=== PATIENT | female | born 1955 | race Caucasian/White ===

== ENCOUNTER 2022-11-09 11:08 | Emergency (ER) | payer MEDICARE, BC, SELFPAY ==
[2022-11-09 11:12] VITALS: BP 165/110; PULSE 99; RESP 16; TEMP 36.6; O2SAT 98; BMI 28.2
--- NOTE | 2022-11-09 11:45 | ED.GENADUL1 ---
HPI - General Adult General Stated complaint: EYE AND NECK ITCHINESS Time Seen by Provider: 11/09/22 11:11 Source: patient Mode of arrival: walk-in Limitations: no limitations History of Present Illness HPI narrative: The patient presented to us with two main concern the 1st one is that she has been having at least two weeks a rash on her left wrist, it did not respond to [id number]-[id number] medication and it is itchy the patient mentioned that she has been exposed to her neighbor who have yeast infection She also noted over the last two days that she's been having itching around her left eye and she also applied the same gpyw-zwo-[id number] cream to her eye with no improvement No blurry vision or double vision and no eye pain no other complaints Related Data Previous Rx's Medication Instructions Recorded clotrimazole 1 % topical cream 1 applic topical BID 2 weeks #15 11/09/22 grams loratadine 10 mg tablet (Claritin) 10 mg PO DAILY PRN itching #10 tabs 11/09/22 tobramycin 0.3 % eye drops 1 drp ophthalmic (eye) Q4H #5 mL 11/09/22 Allergies Allergy/AdvReac Type Severity Reaction Status Date / Time No Known Drug Allergies Allergy Verified 11/09/22 11:12 Review of Systems ROS Status of ROS 10 or more systems reviewed and unremarkable except as noted in history and below Exam Narrative Exam Narrative: Nurses notes and vital signs reviewed and patient is not hypoxic. General: Well-appearing and in no apparent distress. Skin: Warm, dry, no pallor noted. No rash. Head: Normocephalic, atraumatic. Neck: Supple, non-tender. Eye: Pupils are equal, round and EOMI.Left upper and lower eyelid mild swelling there is no limitation of movement of the eye with pain and the patient had a dry macular rash to the lower eyelid Ears, Nose, Mouth, and Throat: TM are clear, no nasal mucosal hypertrophy. Oral mucosa is moist, no posterior oropharynx erythema, uvula is mid-line Cardiovascular: Regular Rate and Rhythm without murmur, gallop or rub. Respiratory: No accessory muscle use or respiratory distress. Lungs are clear to auscultation, no wheezing, rales or rhonchi Chest Wall: no tenderness Back: No midline thoracic or lumbar vertebral tenderness. No CVA tenderness Musculoskeletal: normal ROM, no calf or popliteal tenderness, no lower extremity edema/swelling,There is a small circular 1 cm in diameter macular dry rash on the left wrist GI: Abdomen is soft, non-distended. Normal bowel sounds. No masses appreciated. No tenderness to palpation. No rebound, guarding, or rigidity noted. Neurological: A&O x4. No cranial nerve dysfunction observed. No truncal ataxia. Moves all extremities. Sensation intact. Psychiatric: Cooperative and interactive. Normal mood and affect. Constitutional Vital Signs, click to edit/add: Last Vital Signs Temp 97.8 F 11/09/22 11:12 Pulse 99 H 11/09/22 11:12 Resp 16 11/09/22 11:12 BP 165/110 H 11/09/22 11:12 Pulse Ox 98 11/09/22 11:12 O2 Del Method Room Air 11/09/22 11:12 Course Vital Signs Vital signs: Vital Signs Temperature 97.8 F 11/09/22 11:12 Pulse Rate 99 H 11/09/22 11:12 Respiratory Rate 16 11/09/22 11:12 Blood Pressure 165/110 H 11/09/22 11:12 Pulse Oximetry 98 11/09/22 11:12 Oxygen Delivery Method Room Air 11/09/22 11:12 Temperature 97.8 F 11/09/22 11:12 Pulse Rate 99 H 11/09/22 11:12 Respiratory Rate 16 11/09/22 11:12 Blood Pressure 165/110 H 11/09/22 11:12 Pulse Oximetry 98 11/09/22 11:12 Oxygen Delivery Method Room Air 11/09/22 11:12 Medical Decision Making [facility] Narrative Medical decision making narrative: The patient presentation is most 2/2 tinea infection she was instructed about applying clotrimazole cream to the area ,Of the left breast as well as the lower eyelids keeping an eye on not reaching the globe itself she also was prescribed tobramycin eyedrop to cover for underlying conjunctivitis The patient to take Claritin daily for itching PRN The patient is to followup with primary care physician in next 2-3 days or to return to the emergency department should any of the signs or symptoms worsen or new symptoms develop. The patient agrees with the following Diagnosis and Treatment plan and the patient will be discharged home. Discharge Plan Discharge Clinical Impression: Tinea, Conjunctivitis Patient Disposition: Home, Self-Care Time of Disposition Decision: 11:37 Condition: Good Mode of Transportation: Private Vehicle Prescriptions / Home Meds: New clotrimazole 1 % cream 1 applic topical BID 14 Days Qty: 15 0RF tobramycin 0.3 % drops 1 drp ophthalmic (eye) Q4H Qty: 5 0RF Rx Instructions: to the left eye for 5 days loratadine [Claritin] 10 mg tablet 10 mg PO DAILY PRN (Reason: itching) Qty: 10 0RF Instructions: Tinea Corporis (ED), Conjunctivitis (ED) Stand Alone Forms: Portal Instructions Referrals: FERNANDO CALDERÓN [Primary Care Provider] - 1 week
[2022-11-09 11:50] VITALS: BP 147/78
[2022-11-09] MEDS: PREDNISONE 20 MG TABLET 40 MG PO (11:52)
--- NOTE | 2022-11-09 12:25 | PC.NURSE ---
Pt has had redness and itching to L eye for 2-3 weeks -- dry spot on L forearm and R knee. no drainage needed
== END 2022-11-09 11:56 | disposition home or self-care (01) ==
PROVIDERS: Emergency Provider Emergency Medicine; PCP Family Medicine
DX: B35.9 Dermatophytosis, unspecified (principal); H10.9 Unspecified conjunctivitis
CPT/HCPCS: 99283

== ENCOUNTER 2024-10-15 15:52 | Emergency (ER) | payer MEDICARE, BC, SELFPAY ==
[2024-10-15] VITALS (9 sets, daily range): BP systolic 147–194; BP diastolic 86–112; PULSE 67–87; TEMP 37; O2SAT 96–99; BMI 31.0
--- OUTSIDE RECORDS SUMMARY | 2024-10-15 16:01 | XMS_ITS | Clinical Summary ---
Author Organization [facility] Address [address] [place] [address] Care Team Providers Care Sat Instructor Name Role Phone Unavailable Primary Care Provider Unavailabl e Social History Tobacco Use Types Packs/Day Years Used Date Smoking Tobacco: Never Assessed Comments Unknown Sex and Gender Information Value Date Recorded Sex Assigned at Not on file Legal Sex Female 6:37 PM EDT Gender Identity Not on file Sexual Orientation Not on file Last Filed Vital Signs Vital Sign Reading Time Taken Comments Blood Pressure - - Pulse - - Temperature - - Respiratory Rate - - Oxygen Saturation - - Inhaled Oxygen Concentration - - Weight 87.1 kg (192 lb) 04/01/2021 12:00 PM EST Height 165.1 cm (5' 5 ) 04/01/2021 12:00 PM EST Body Mass Index 31.95 04/01/2021 12:00 PM EST Plan of Treatment Not on file Insurance MEDICARE
--- OUTSIDE RECORDS SUMMARY | 2024-10-15 16:01 | XMS_ITS | Clinical Summary ---
Author Organization [facility] Address [facility] [place] [id number] [address] [place] [address] Care Team Providers Care Zigzag Topstitcher Name Role Phone Yusuf Callaway MD Primary Care Provider [phone] Allergies Active Allergy Reactions Criticality Noted Date Comments Ciprofloxacin 11/21/2021 Medications fexofenadine-ps eudoephedrine (NIKOLAS-D) 60-120 mg per 12 hr tablet Take 1 tablet by mouth in the morning and 1 tablet before bedtime. Active predniSONE (DELTASONE) 10 mg tabletIndicatio ns:Chronic nasal congestion Daily dose: 5 tabs for 2 days, then 4 tabs for 2 days, then 3 tabs for 2 days, then 2 tabs for 2 days, then 1 tab for 2 days 30 tablet 2 Active Additional Information Patient not taking.Reported on 01/25/2022 mometasone (NASONEX) 50 mcg/actuation nasal sprayIndication s:Chronic nasal congestion Administer 2 sprays into each nostril in the morning. 17 g 12 2 Active Active Problems Problem Noted Date Diagnosed Date Chronic nasal congestion 11/21/2021 Deviated nasal septum 11/21/2021 Social History Tobacco Use Types Packs/Day Years Used Date Smoking Tobacco: Never Assessed Childcare Answer Date Recorded Childcare Unknown 10/09/2018 Employment Answer Date Recorded Employment Unknown 10/09/2018 Purpose - Life Answer Date Recorded Purpose and direction in life Unknown Comments Unknown Sex and Gender Information Value Date Recorded Sex Assigned at Not on file Legal Sex Female 11:50 AM EDT Gender Identity Not on file Sexual Orientation Not on file Last Filed Vital Signs Vital Sign Reading Time Taken Comments Blood Pressure - - Pulse - - Temperature - - Respiratory Rate - - Oxygen Saturation - - Inhaled Oxygen Concentration - - Weight 83.9 kg (185 lb) 01/25/2022 11:31 AM EDT Height 170.2 cm (5' 7 ) 01/25/2022 11:31 AM EDT Body Mass Index 28.98 01/25/2022 11:31 AM EDT Plan of Treatment Health Maintenance Due Date Last Done Comments Depression Screening 1966 Tobacco Screening 1966 DTaP,Tdap and Td Vaccines (1 - Tdap) 1973 Zoster (Shingles) Vaccine (1 of 2) 2004 Fall Risk Screening 10/20/2019 Adult BMI Screening 01/25/2023 01/25/2022 Influenza Vaccine 12/29/2024 Medical Devices Not on file [place] [address] MEDICARE Care Teams Zigzag Topstitcher Relationship Specialty [place] [id number] [address] PCP - General Family Medicine 12/28/21
--- NOTE | 2024-10-15 17:36 | XR_ITS ---
[address] [address] Patient Name: KAREN BARBOSA MRN: [id number] date: 1955 Sex: F Assigned Patient Location: ER Current Patient Location: ER Accession/Order Number: [id number] Exam Date: 10/15/2024 17:56 Report Date: 10/15/2024 17:57 At the request of: MEÑO JOHNSON Procedure: XR chest 2V XR chest 2V 10/15/2024 5:51 PM SIGNS AND SYMPTOMS: ^swelling wt gain PROTOCOL: Frontal and lateral radiographs of the chest COMPARISON: None FINDINGS: The trachea is midline. The heart and mediastinal structures are within normal limits. The lung parenchyma is clear. The bony thorax is intact. XR/XR chest 2V IMPRESSION: No acute cardiopulmonary pathology. Impression dictated by: Herve Young M.D. 10/15/2024 5:57 PM Dictation Location: [place] [address] Electronically authenticated by: [id number] Y Date: 10/15/2024 17:57
--- NOTE | 2024-10-15 17:36 | ECG_ITS ---
[facility] Test Date: 2024-10-15 Pat Name: KAREN BARBOSA Department: Room: - Gender: Female Distribution Clerk: : 1955 Requested By: 0923 Order Number: [id number] Celio MD: YOLANDA MEJIA M.D. Measurements Intervals Sidney Rate: 65 P: 56 ME: 152 QRS: 85 QRSD: 82 T: 69 QT: 418 QTc: 430 Interpretive Statements 1100 Sinus rhythm 9110 normal ECG No previous ECG available for comparison Electronically Signed On 10-15-2024 21:06:37 EDT by YOLANDA MEJIA M.D.
[2024-10-15 18:05] LABS: Basophils Absolute Auto 0.1 10^3/uL (0.0-0.1); Basophils Percent Auto 0.7 % (0.2-2.0); Eosinophils Absolute Auto 0.4 10^3/uL (0.0-0.7); Eosinophils Percent Auto 3.9 % (0.9-7.0); Hematocrit 43.2 % (36.0-48.0); Hemoglobin 13.9 g/dL (12.0-16.0); Immature Granulocytes Abs Auto 0.02 10^3/uL (0.00-0.03); Immature Granulocytes Pct Auto 0.2 % (0.0-0.5); Lymphocytes Percent Auto 29.8 % (20.5-60.0); Mean Corpuscular HGB Conc 32.2 g/dL (29.9-35.2); Mean Corpuscular Volume 93.1 fL (81.0-99.0); Mean Platelet Volume 10.3 fL (9.5-13.5); Monocytes Absolute Auto 0.9 10^3/uL (0.3-0.8); Monocytes Percent Auto 8.5 % (1.7-12.0); Neutrophils Absolute Auto 5.7 10^3/uL (1.4-6.5); Neutrophils Percent Auto 56.9 % (43.0-75.0); Platelet Count 321 10^3/uL (150-450); Red Blood Count 4.64 10^6/uL (4.20-5.40); Red Cell Distribution Width 13.5 % (11.0-15.0); White Blood Count 10.1 10^3/uL (4.0-11.0)
--- NOTE | 2024-10-15 18:15 | ED.GENADUL1 ---
Documented by User: Concha Stockton 10/15/24 19:59 HPI HPI - General Adult General Chief complaint: Weakness Stated complaint: WEAKNESS Time Seen by Provider: 10/15/24 17:05 Source: patient Mode of arrival: walk-in Limitations: no limitations History of Present Illness HPI narrative: 68-year-old female presents here with chief complaint of left lower extremity swelling. She states she has had weight gain and lower extremity swelling for the past several days. She states she has had at least a 10 to 15 pound weight gain over the last couple of months. She denies any shortness of breath. She states she just feels swollen everywhere. She states she was seen in urgent care and sent here for evaluation due to high blood pressure. Patient denies any chest pain today. Denies known history of hypertension. Patient denies taking any medications. Patient denies any fevers chills or urinary symptoms Related Data Home Medications ?Medication ?Instructions ?Recorded ?Confirmed No Known Home Medications 10/15/24 10/15/24 Allergies Allergy/AdvReac Type Severity Reaction Status Date / Time No Known Drug Allergies Allergy Verified 10/15/24 15:57 Review of Systems ROS Status of ROS 10 or more systems reviewed and unremarkable except as noted in history and below PFSH PFSH Social History Little interest or pleasure in doing things: not at all Feeling down, depressed, or hopeless: not at all Exam Narrative Exam Narrative: All Systems are negative except as noted/marked.All systems reviewed and otherwise negative Nurses note and vital signs reviewed and patient is not hypoxic. General: The patient appears well and in no apparent distress. Patient is resting comfortably on cart. Skin: Warm, dry, no pallor noted. There is no rash noted. Head: Normocephalic, atraumatic Eye: Normal conjunctiva, no drainage, EOMI. PERRL Ears, Nose, Mouth, and Throat: oral mucosa is moist. Nares patent. Mouth without vesicles. Ear canals patent. Tm's without Erythema Cardiovascular: Regular Rate and Rhythm Respiratory: Patient is in no distress, no accessory muscle use, lungs are clear to auscultation, no wheezing, rales or rhonchi Back: non-tender, no CVA tenderness bilaterally to percussion. GI: Normal bowel sounds, no tenderness to palpation, no masses appreciated. No rebound, guarding, or rigidity noted. Musculoskeletal: left lower extremity swelling with pitting edema x1, The patient has no evidence of calf tenderness, symmetrical pulses noted bilaterally Neurological: A&O x4, normal speech Psychiatric: Cooperative Constitutional Vital Signs, click to edit/add: Last Vital Signs Temp 98.6 F 10/15/24 15:58 Pulse 78 10/15/24 18:40 Resp 16 10/15/24 18:40 BP 174/86 H 10/15/24 18:33 Pulse Ox 96 10/15/24 18:40 O2 Del Method Room Air 10/15/24 18:16 Course Vital Signs Vital signs: Vital Signs Temperature 98.6 F 10/15/24 15:58 Pulse Rate 69 10/15/24 15:58 Respiratory Rate 16 10/15/24 15:58 Blood Pressure 190/88 H 10/15/24 15:58 Pulse Oximetry 97 10/15/24 15:58 Temperature 98.6 F 10/15/24 15:58 Pulse Rate 78 10/15/24 18:40 Respiratory Rate 16 10/15/24 18:40 Blood Pressure 174/86 H 10/15/24 18:33 Pulse Oximetry 96 10/15/24 18:40 Oxygen Delivery Method Room Air 10/15/24 18:16 Medical Decision Making MDM Narrative Medical decision making narrative: 68-year-old female presents here with chief complaint of left lower extremity swelling. She states she has had weight gain and lower extremity swelling for the past several days. She states she has had at least a 10 to 15 pound weight gain over the last couple of months. She denies any shortness of breath. She states she just feels swollen everywhere. She states she was seen in urgent care and sent here for evaluation due to high blood pressure. Patient denies any chest pain today. Denies known history of hypertension. Patient denies taking any medications. Patient denies any fevers chills or urinary symptoms Patient presenting here with a chief complaint of lower extremity swelling and weakness. Patient looks well at this time. Complete cardiac workup including CBC CMP troponin BNP were all obtained and within normal limits. Patient also an ultrasound lower extremities was read negative by radiologist no acute DVT x-ray also negative. While patient has been sitting here resting comfortably her blood pressure is improving its 174/86. She has had no chest pain no shortness of breath. I did explain leg edema as well as increased blood pressures. Patient was told to keep a blood pressure log and follow-up with her primary care physician. She is scheduled to see them in the next couple of weeks. Reasons to return to the emergency room for hypertension hypertension crisis were explained. Patient and family member at agree with plan of care. Patient is stable. Differential Diagnosis Differential Diagnosis: hypertension, leg swelling, dvt Medical Records Medical records reviewed: Yes I reviewed the patient's medical records Lab Data Lab results reviewed: Yes I reviewed the patient's lab results Labs: Lab Results 10/15/24 Range/Units 17:56 WBC 10.1 (4.0-11.0) 10^3/uL RBC 4.64 (4.20-5.40) 10^6/uL Hgb 13.9 (12.0-16.0) g/dL Hct 43.2 (36.0-48.0) % MCV 93.1 (81.0-99.0) fL MCH 30.0 (26.7-34.0) pg MCHC 32.2 (29.9-35.2) g/dL RDW 13.5 (11.0-15.0) % Plt Count 321 (150-450) 10^3/uL MPV 10.3 (9.5-13.5) fL Neut % (Auto) 56.9 (43.0-75.0) % Lymph % (Auto) 29.8 (20.5-60.0) % [place] % (Auto) 8.5 (1.7-12.0) % Eos % (Auto) 3.9 (0.9-7.0) % Baso % (Auto) 0.7 (0.2-2.0) % Neut # (Auto) 5.7 (1.4-6.5) 10^3/uL Lymph # (Auto) 3.0 (1.2-3.8) 10^3/uL [place] # (Auto) 0.9 H (0.3-0.8) 10^3/uL Eos # (Auto) 0.4 (0.0-0.7) 10^3/uL Baso # (Auto) 0.1 (0.0-0.1) 10^3/uL Abs Immat Gran (auto) 0.02 (0.00-0.03) 10^3/uL Imm/Tot Granulo (auto) 0.2 (0.0-0.5) % PT 10.2 (9.0-11.6) sec INR 0.96 APTT 27.0 (22.3-36.2) sec Sodium 141 (136-145) mmol/L Potassium 3.9 (3.5-5.1) mmol/L Chloride 104 (98-107) mmol/L Carbon Dioxide 28.7 (21.0-32.0) mmol/L Anion Gap 12.2 BUN 18.0 (7.0-18.0) mg/dL Creatinine 0.91 (0.55-1.02) mg/dL Est GFR ( Amer) >60 (>=60 mL/min/1.73m^2) Est GFR (Non-Af Amer) >60 (>=60 mL/min/1.73m^2) BUN/Creatinine Ratio 19.8 Glucose 96 (74-106) mg/dL Calcium 8.8 (8.5-10.1) mg/dL Total Bilirubin 0.4 (0.2-1.0) mg/dL AST 22 (15-37) U/L ALT 25 (14-59) U/L Alkaline Phosphatase 119 H (46-116) U/L Troponin I High Sens 6.0 (4.0-51.3) pg/mL NT-Pro-B Natriuret Pep 61.0 (<=900.0) pg/mL Total Protein 7.9 (6.4-8.2) g/dL Albumin 3.7 (3.4-5.0) g/dL Globulin 4.2 g/dL Albumin/Globulin Ratio 0.9 Imaging Data Chest x-ray: Radiologist's impression: ITS Impressions Chest X-Ray 10/15/24 17:36 IMPRESSION: No acute cardiopulmonary pathology. Impression dictated by: Herve Young M.D. 10/15/2024 5:57 PM Dictation Location: [place] [address] Electronically authenticated by: [id number] Y Date: 10/15/2024 17:57 ECG Data Interpretation: 1813 normal sinus rhythm rate of 65 bpm RI interval 152 ms QRS duration [address] elevation or depression, no STEMI Discharge Plan Discharge Chief Complaint: Weakness Clinical Impression: Localized swelling of left lower extremity, Hypertension Patient Disposition: Home, Self-Care Time of Disposition Decision: 19:56 Condition: Good Prescriptions / Home Meds: No Action No Known Home Medications Print Language: Kenyan Instructions: Leg Edema (ED), Hypertension (ED) Referrals: FERNANDO CALDERÓN [Primary Care Provider, Family Practice] - 1 week Documented by User: Chapito Mccabe MD 10/15/24 21:42 HPI HPI - General Adult General Chief complaint: Weakness Stated complaint: WEAKNESS Time Seen by Provider: 10/15/24 17:05 Related Data Home Medications ?Medication ?Instructions ?Recorded ?Confirmed No Known Home Medications 10/15/24 10/15/24 Allergies Allergy/AdvReac Type Severity Reaction Status Date / Time No Known Drug Allergies Allergy Verified 10/15/24 15:57 PFSH PFSH Social History Little interest or pleasure in doing things: not at all Feeling down, depressed, or hopeless: not at all Exam Constitutional Vital Signs, click to edit/add: Last Vital Signs Temp 98.6 F 10/15/24 15:58 Pulse 78 10/15/24 18:40 Resp 16 10/15/24 18:40 BP 174/86 H 10/15/24 18:33 Pulse Ox 96 10/15/24 18:40 O2 Del Method Room Air 10/15/24 18:16 Course Vital Signs Vital signs: Vital Signs Temperature 98.6 F 10/15/24 15:58 Pulse Rate 69 10/15/24 15:58 Respiratory Rate 16 10/15/24 15:58 Blood Pressure 190/88 H 10/15/24 15:58 Pulse Oximetry 97 10/15/24 15:58 Temperature 98.6 F 10/15/24 15:58 Pulse Rate 78 10/15/24 18:40 Respiratory Rate 16 10/15/24 18:40 Blood Pressure 174/86 H 10/15/24 18:33 Pulse Oximetry 96 10/15/24 18:40 Oxygen Delivery Method Room Air 10/15/24 18:16 Medical Decision Making MDM Narrative Medical decision making narrative: 68-year-old female presents here with chief complaint of left lower extremity swelling. She states she has had weight gain and lower extremity swelling for the past several days. She states she has had at least a 10 to 15 pound weight gain over the last couple of months. She denies any shortness of breath. She states she just feels swollen everywhere. She states she was seen in urgent care and sent here for evaluation due to high blood pressure. Patient denies any chest pain today. Denies known history of hypertension. Patient denies taking any medications. Patient denies any fevers chills or urinary symptoms Patient presenting here with a chief complaint of lower extremity swelling and weakness. Patient looks well at this time. Complete cardiac workup including CBC CMP troponin BNP were all obtained and within normal limits. Patient also an ultrasound lower extremities was read negative by radiologist no acute DVT x-ray also negative. While patient has been sitting here resting comfortably her blood pressure is improving its 174/86. She has had no chest pain no shortness of breath. I did explain leg edema as well as increased blood pressures. Patient was told to keep a blood pressure log and follow-up with her primary care physician. She is scheduled to see them in the next couple of weeks. Reasons to return to the emergency room for hypertension hypertension crisis were explained. Patient and family member at agree with plan of care. Patient is stable. I, Dr Mccabe, have reviewed the above progress note and course of action in the ER; agree with the above. I have personally gone over history and physical, and discussed disposition and treatment plan with the PA. Patient understands the importance of creating a blood pressure log, recording her blood pressure twice a day for the next 1 to 2 weeks. Lab Data Labs: Lab Results 10/15/24 Range/Units 17:56 WBC 10.1 (4.0-11.0) 10^3/uL RBC 4.64 (4.20-5.40) 10^6/uL Hgb 13.9 (12.0-16.0) g/dL Hct 43.2 (36.0-48.0) % MCV 93.1 (81.0-99.0) fL MCH 30.0 (26.7-34.0) pg MCHC 32.2 (29.9-35.2) g/dL RDW 13.5 (11.0-15.0) % Plt Count 321 (150-450) 10^3/uL MPV 10.3 (9.5-13.5) fL Neut % (Auto) 56.9 (43.0-75.0) % Lymph % (Auto) 29.8 (20.5-60.0) % [place] % (Auto) 8.5 (1.7-12.0) % Eos % (Auto) 3.9 (0.9-7.0) % Baso % (Auto) 0.7 (0.2-2.0) % Neut # (Auto) 5.7 (1.4-6.5) 10^3/uL Lymph # (Auto) 3.0 (1.2-3.8) 10^3/uL [place] # (Auto) 0.9 H (0.3-0.8) 10^3/uL Eos # (Auto) 0.4 (0.0-0.7) 10^3/uL Baso # (Auto) 0.1 (0.0-0.1) 10^3/uL Abs Immat Gran (auto) 0.02 (0.00-0.03) 10^3/uL Imm/Tot Granulo (auto) 0.2 (0.0-0.5) % PT 10.2 (9.0-11.6) sec INR 0.96 APTT 27.0 (22.3-36.2) sec Sodium 141 (136-145) mmol/L Potassium 3.9 (3.5-5.1) mmol/L Chloride 104 (98-107) mmol/L Carbon Dioxide 28.7 (21.0-32.0) mmol/L Anion Gap 12.2 BUN 18.0 (7.0-18.0) mg/dL Creatinine 0.91 (0.55-1.02) mg/dL Est GFR ( Amer) >60 (>=60 mL/min/1.73m^2) Est GFR (Non-Af Amer) >60 (>=60 mL/min/1.73m^2) BUN/Creatinine Ratio 19.8 Glucose 96 (74-106) mg/dL Calcium 8.8 (8.5-10.1) mg/dL Total Bilirubin 0.4 (0.2-1.0) mg/dL AST 22 (15-37) U/L ALT 25 (14-59) U/L Alkaline Phosphatase 119 H (46-116) U/L Troponin I High Sens 6.0 (4.0-51.3) pg/mL NT-Pro-B Natriuret Pep 61.0 (<=900.0) pg/mL Total Protein 7.9 (6.4-8.2) g/dL Albumin 3.7 (3.4-5.0) g/dL Globulin 4.2 g/dL Albumin/Globulin Ratio 0.9 Imaging Data Chest x-ray: Radiologist's impression: ITS Impressions Chest X-Ray 10/15/24 17:36 IMPRESSION: No acute cardiopulmonary pathology. Impression dictated by: Herve Young M.D. 10/15/2024 5:57 PM [facility]ation [facility] Electronically authenticated by: [id number] Y Date: 10/15/2024 17:57 Discharge Plan Discharge Chief Complaint: Weakness Clinical Impression: Localized swelling of left lower extremity, Hypertension Patient Disposition: Home, Self-Care Time of Disposition Decision: 19:56 Condition: Good Prescriptions / Home Meds: No Action No Known Home Medications Print Language: Kenyan Instructions: Leg Edema (ED), Hypertension (ED) Referrals: FERNANDO CALDERÓN [Primary Care Provider, Family Practice] - 1 week
--- NOTE | 2024-10-15 18:19 | PC.NURSE ---
Pt presents to ER for lower extremity swelling over the last few days Pt repeatedly states that other than the swelling in lower legs she feels fine and has no other symptoms Pt went to urgent care for this where she was also told she has high blood pressure and they wanted her evaluated Chest xray, labs, and EKG obtained
[2024-10-15 18:20] LABS: INR 0.96; Prothrombin Time 10.2 sec (9.0-11.6)
[2024-10-15 18:28] LABS: Alanine Aminotransferase 25 U/L (14-59); Albumin Globulin Ratio 0.9; Albumin Level 3.7 g/dL (3.4-5.0); Alkaline Phosphatase 119 U/L (46-116); Anion Gap 12.2; Aspartate Amino Transferase 22 U/L (15-37); BUN Creatinine Ratio 19.8; Bilirubin Total 0.4 mg/dL (0.2-1.0); Calcium 8.8 mg/dL (8.5-10.1); Carbon Dioxide 28.7 mmol/L (21.0-32.0); Chloride 104 mmol/L (98-107); Estimated GFR (African America >60 (>=60 mL/min/1.73m^2); Estimated GFR (Non-African Ame >60 (>=60 mL/min/1.73m^2); Globulin 4.2 g/dL; Glucose 96 mg/dL (74-106); Potassium 3.9 mmol/L (3.5-5.1); Sodium 141 mmol/L (136-145); Total Protein 7.9 g/dL (6.4-8.2)
[2024-10-15] MEDS: CETIRIZINE HCL 10 MG TABLET PO (20:31)
== END 2024-10-15 20:38 | disposition home or self-care (01) ==
PROVIDERS: Physician Assistant; Emergency Provider Emergency Medicine; PCP Family Medicine
DX: R22.42 Localized swelling, mass and lump, left lower limb (principal); I10 Essential (primary) hypertension; R53.1 Weakness
CPT/HCPCS: 36415; 71046; 80053; 83880; 84484; 85025; 85610; 85730; 93005; 93971; 99285